=== PATIENT | female | born 1955 | race Caucasian/White ===

== ENCOUNTER → 2019-06-15 | Outpatient (CLI) | payer OTHER ==
--- NOTE | 2019-06-18 07:44 | PE ---
EXAMINATION TYPE: PET CT fusion skull to thigh DATE OF EXAM: 06/15/2019 COMPARISON: Report from an outside institution dated 06/04/2019 HISTORY: Bilateral pulmonary nodules. TECHNIQUE: Following the intravenous administration of 9.97 mCi of F-18 FDG, whole body images are p erformed from the skull base to the midthigh. Images are reviewed on the computer in the coronal, ax ial, and sagittal planes. Reconstructed rotating images are created on independent workstation and r eviewed on the computer. A localization and attenuation correction CT is performed in conjunction w ith the PET scan. SCAN: Initial treatment strategy FINDINGS: Mediastinal background: 1.46 Abdominal background: 2.41 SKULL BASE AND NECK: No suspicious hypermetabolic uptake. Uptake in the pharynx anteriorly at the le pranav of the vallecula may be physiologic related to physiologic uptake with a maximum SUV just above m ediastinal background measuring 2.78, although direct visualization could be considered. CHEST, MEDIASTINUM, AND HILAR REGION: There are bilateral scattered 5 mm and smaller pulmonary nodule s, below the threshold of PET CT. The 1.3 cm dominant nodule in the inferior lingula for which PET CT was recommended demonstrates a maximum SUV of 1.06. Additional benign calcified granulomas are seen. ABDOMEN AND PELVIS: No suspicious hypermetabolic uptake. OSSEOUS STRUCTURES: Uptake within the right femur is noted in the femoral head with findings concerni ng for avascular necrosis on axial images of the confirmed with coronal or sagittal imaging. Alternat ively multiple geodes are possible with advanced degenerative change and some remodeling of the right hip joint. There is focal hypermetabolic activity nearing area of lucency with a maximum SUV of 2.88 . Lucent lesion is seen within the right superior acetabulum extending into the right iliac bone that is hypometabolic with a maximum SUV of 0.97. Therefore alternative consideration is for multiple mye saray. OTHER CT: Extensive degenerative change versus other within the right hip as detailed and the osseous structure s section. Moderate multilevel degenerative changes of the spine are also seen. Paranasal sinuses and mastoid air cells are well aerated. Strand-like probable residual thymic tissue in the superior medi astinum without focal mass. Upper limits of normal size ascending thoracic aorta measuring 3.6 cm. No aneurysmal dilatation. Small hiatal hernia suspected. As detailed in a long section there are scatte red calcified and noncalcified pulmonary nodules. Bibasilar subsegmental atelectasis is also seen. No discrete mediastinal adenopathy nor significant coronary calcifications. Mild atheromatous changes o f the thoracic aorta. Hypometabolic fluid attenuated hepatic cyst is seen near within the hepatic dome measuring 1 cm. The spleen displays a calcified benign granuloma. There is a questionable exophytic lesion of the left ki dney versus previously described adjacent areas of scarring. This emanates from the mid pole on serie s 3 image 146 measuring 1.9 cm. Three-phase enhanced CT abdomen is recommended to further evaluate th is finding. Moderate atheromatous changes of the and abdominal aorta. Right hip joint effusion is als o seen. IMPRESSION: 1. Lingular pulmonary nodule with no hypermetabolic activity that likely relates to a benign neoplasm or granulomatous disease. Additional granulomatous changes of the lungs and spleen. Surveillance is recommended for the 5 mm and smaller noncalcified bilateral pulmonary nodules. Surveillance can also be performed for the 1.3 cm lingular nodule. 2. Possible exophytic left midpole 1.9 cm renal mass versus adjacent areas of cortical scarring and p seudomass formation (accurate SUV is not available given the adjacent renal sinus activity, however r enal cell carcinomas are commonly hypometabolic). Three-phase enhanced CT abdomen is recommended to f urther evaluate this finding. 3. Focal hypermetabolic activity of the right hip joint with effusion. Right hip aspiration could be considered. CBC is also recommended to exclude septic joint. Lytic lesion demonstrate focal hypermeta bolic activity that could be on the basis of advanced degenerative change with active inflammation, a vascular necrosis with peripheral hypermetabolic activity from active inflammation, or neoplasm such as multiple myeloma.
== END | disposition home or self-care (01) ==
LOC: RADPETMAIN 15:38
PROVIDERS: ATTEND Internal Medicine Pulmonary Disease
DX: R91.1 Solitary pulmonary nodule (principal); R93.7 Abnormal findings on diagnostic imaging of other parts of musculoskeletal system; M25.451 Effusion, right hip
CPT/HCPCS: 78815; A9552